=== PATIENT | male | born 1975 | race Asian ===

== ENCOUNTER 2017-09-28 02:19 | Emergency (ER) | payer OTHER ==
[2017-09-28] MEDS ORDERED: PERCOCET 5-3251 EACH PO (03:38)
== END 2017-09-28 03:45 | disposition home or self-care (01) ==
LOC: ED 02:19
DX: S32.029A Unspecified fracture of second lumbar vertebra, initial encounter for closed fracture (principal); S32.039A Unspecified fracture of third lumbar vertebra, initial encounter for closed fracture; V43.62XA Car passenger injured in collision with other type car in traffic accident, initial encounter; Y92.411 Interstate highway as the place of occurrence of the external cause
CPT/HCPCS: 71260; 74177; 80053; 82150; 82550; 83690; 85025; 86850; 86900; 86901; 99284; G0480; J2270; J2405; J7030; Q9967